=== PATIENT | female | born 1995 | race Caucasian/White ===

== ENCOUNTER 2017-10-24 22:59 | Emergency (ER) | payer BC ==
[~2017-10-24] VITALS: Ht 160 cm; Wt 52.6 kg
[~2017-10-24 22:59] MED LIST: AURALGAN EAR DR14 ML OTIC; CORTISPORIN OTI10 ML OTIC; CRYSELLE1 EACH PO; MEDROLDOSEPACK PO; NORCO 5-325 TA1 EACH PO; PRENATAL
[2017-10-25] MEDS ORDERED: BACTRIM DS TAB1 EACH PO (00:03)
[2017-10-25] MEDS ORDERED: AMOXIL 875 MG875 M1 PO (00:04)
[2017-10-25] MEDS ORDERED: CLEOCIN HCL150 MG PO (00:27)
[2017-10-25 00:47] VITALS: BP 130/82
== END 2017-10-25 00:50 | disposition home or self-care (01) ==
LOC: ER 22:59
DX: L03.113 Cellulitis of right upper limb (principal); F17.210 Nicotine dependence, cigarettes, uncomplicated; Z88.1 Allergy status to other antibiotic agents; Z91.040 Latex allergy status

== ENCOUNTER 2017-12-29 01:49 | Emergency (ER) | payer BC ==
[~2017-12-29] VITALS: Ht 157.5 cm; Wt 54.4 kg
[~2017-12-29 01:49] MED LIST changes: +AMOXIL 875 MG875 M1 PO; +BACTRIM DS TAB1 EACH PO; +CLEOCIN HCL150 MG PO
[2017-12-29 01:56] VITALS: BP 129/89
[2017-12-29] MEDS ORDERED: BACTRIM DS TAB1 EACH PO (02:38)
== END 2017-12-29 02:47 | disposition home or self-care (01) ==
LOC: ER 01:49
DX: L02.416 Cutaneous abscess of left lower limb (principal); F15.10 Other stimulant abuse, uncomplicated; F17.210 Nicotine dependence, cigarettes, uncomplicated; Z88.1 Allergy status to other antibiotic agents; Z91.040 Latex allergy status

== ENCOUNTER 2018-01-22 22:19 | Inpatient (IN) | payer BC ==
[~2018-01-22] VITALS: Ht 160 cm; Wt 52.3 kg
[2018-01-22 22:37] VITALS: BP 116/85
[2018-01-22] MEDS ORDERED: BACTRIM DS TAB1 EACH PO (22:42)
[2018-01-22] MEDS ORDERED: DICLOFENAC SOD50 M1 PO (22:42)
[2018-01-22] MEDS ORDERED: MUPIROCIN22 GM TOP (22:43)
[2018-01-22] MEDS ORDERED: CIPROFLOXIN HC2.5 M1 OPHTHALMIC (22:43)
[2018-01-23 00:09] LABS: ABSOLUTE NEUTROPHILS 8.4 thou/uL (1.4-8.2); BASOPHILS 0.4 % (0.0-2.0); EOSINOPHILS 2.1 % (0.0-3.0); HEMOGLOBIN 14.3 gm/dL (12.0-15.0); LYMPHOCYTES 20.5 % (24.0-44.0); MCH 28.8 pg (26.0-34.0); MCHC 34.9 g/dL (28.0-37.0); MCV 82.4 fL (80.0-100.0); MONOCYTES 7.2 % (1.0-8.0); PLATELET COUNT 282 thou/uL (150-400); POLYS 69.8 % (36.0-66.0); RBC 4.98 mil/uL (4.20-5.00); RDW 14.4 % (10.5-14.5); WBC 12.1 thou/uL (4.0-11.0)
[2018-01-23 01:02] LABS: CALCIUM 8.9 mg/dL (8.5-10.1); CREATININE 0.9 mg/dL (0.6-1.0); POTASSIUM 3.2 mmol/L (3.5-5.1)
[2018-01-23 02:02] VITALS: BP 116/85
[2018-01-23 02:17] VITALS: BP 116/85; BP 118/68
[2018-01-23 02:48] VITALS: BP 113/68
[2018-01-23 09:00] VITALS: BP 107/59
[2018-01-23 16:34] VITALS: BP 107/60
[2018-01-23 19:43] LABS: URINE BILIRUBIN NEGATIVE (Negative); URINE BLOOD NEGATIVE (Negative); URINE CLARITY CLEAR; URINE COLOR YELLOW; URINE GLUCOSE-RANDOM* NEGATIVE (Negative); URINE KETONES NEGATIVE (Negative); URINE LEUKOCYTES-REFLEX NEGATIVE (Negative); URINE NITRITE-REFLEX NEGATIVE (Negative); URINE PROTEIN (DIPSTICK) NEGATIVE (Negative); URINE SPECIFIC GRAVITY >= 1.030 (1.005-1.035); URINE UROBILINOGEN 0.2 E.U./dl (0.2-1.0)
[2018-01-23 19:48] LABS: AMP/METHAMP POSITIVE (Negative); BARBITURATES Negative (Negative); BENZODIAZEPINES Negative (Negative); COCAINE Negative (Negative); METHADONE Negative (Negative); OPIATES POSITIVE (Negative); PCP Negative (Negative)
[2018-01-23 20:00] VITALS: BP 105/66
[2018-01-24 05:27] VITALS: BP 104/55
[2018-01-24 06:18] LABS: HEMATOCRIT 37.4 % (37.0-47.0); HEMOGLOBIN 12.7 gm/dL (12.0-15.0); MCHC 33.9 g/dL (28.0-37.0); MCV 85.6 fL (80.0-100.0); RBC 4.37 mil/uL (4.20-5.00); RDW 13.1 % (10.5-14.5); WBC 7.3 thou/uL (4.0-11.0)
[2018-01-24 06:36] LABS: CALCIUM 8.8 mg/dL (8.5-10.1); CREATININE 0.7 mg/dL (0.6-1.0); POTASSIUM 3.8 mmol/L (3.5-5.1)
[2018-01-24 10:33] VITALS: BP 109/67
== END 2018-01-24 18:00 | disposition home or self-care (01) | DRG 603 ==
LOC: ER 22:19 → 4E 01-23 01:53 → EROBS 01-23 01:53 → 4E 01-23 02:18
PROVIDERS: Emergency Medicine; Nurse Practitioner Family; Physician Assistant
DX: L03.213 Periorbital cellulitis (principal); F32.9 Major depressive disorder, single episode, unspecified; F41.9 Anxiety disorder, unspecified; F20.9 Schizophrenia, unspecified; F17.210 Nicotine dependence, cigarettes, uncomplicated; Z88.1 Allergy status to other antibiotic agents; Z90.01 Acquired absence of eye; Z91.040 Latex allergy status; Z79.899 Other long term (current) drug therapy
CPT/HCPCS: 10084